=== PATIENT | female | born 1975 | race Caucasian/White ===

== ENCOUNTER → 2016-11-05 | Outpatient (CLI) | payer BC ==
--- NOTE | ~2016-11-05 | ECH ---
Transthoracic Echocardiography Report (TTE) Demographics Patient Name MADELYN SAAVEDRA Date of Study 11/05/2016 Patient Number [id number] Visit Number [id number] Date of 1975 Room Number Accession Number [id number] Gender Female Age 40 year(s) Referring Joselyn Morales MD Framing Inspector Vilma Mora Physician RDCS Physician Interpreting Marlys BORRERO Master Fisher Physician [place] Supervising Ordering Physician Joselyn Morales MD, MD/MLP Nurse Stress [employer] Farm Manager Conclusions Contractility Score Summary Normal Left Ventricular contractility was noted. Summary Technically good exam. The estimated left ventricular ejection fraction is 60%. No significant valvular abnormalities. Recommendation The patient will be given the results of this study by the physician who ordered the exam. Procedure Type of Study TTE procedure:Echo Complete SF. Procedure Date Date: 11/05/2016 Start: 12:48 PM Technical Quality: Good visualization Indications:Bilateral lower extremity edema. Appropriate Use Criteria: 9 Height: 62 inches Weight: 175 pounds BSA: 1.81 m Rhythm: NSR HR: 72 bpm BP: 108/56 mmHg M-Mode/2D Measurements LV Diastolic Dimension: 5.17 cm LV Systolic Dimension: 4.06 cm LV Septum Diastolic: 0.79 cm LV PW Diastolic: 0.75 cm AO Root Dimension: 3.18 cm Cardiac Output: 5.24 l/min LA Dimension: 3.5 cm Cardiac Index: 2.9 l/min*m RV Diastolic Dimension: 3.6 cm LA volume index: 20 ml/m LVOT: 1.89 cm LVOT VTI: 25.95 cm RV Base: 2.8 cm LV Stroke volume: 72.77 ml RV Mid: 2.2 cm LV Stroke volume index: 40.2 ml/m TAPSE: 2.7 cm TDI-S': 13 cm/s Doppler Measurements AV Peak Velocity: 1.4 m/s MV Peak E-Wave: 0.85 m/s AV Peak Gradient: 7.84 mmHg MV Peak A-Wave: 0.5 m/s AV Mean Gradient: 4.47 mmHg MV E/A Ratio: 1.68 LVOT Peak Velocity: 1.35 m/s MV P1/2t: 57.3 msec AV Area (Continuity):2.48 cm MV Deceleration Time: 190.6 msec MV Area (PHT): 3.84 cm PV Peak Velocity: 0.99 m/s E' Septal Velocity: 0.1 m/s PV Peak Gradient: 3.92 mmHg E' Lateral Velocity: 0.13 m/s A' Septal Velocity: 0.08 m/s A' Lateral Velocity: 0.04 m/s RA Area: 13.7 cm Findings Left Ventricle Normal left ventricle size and function. Diastolic assessment reveals normal relaxation. Right Ventricle Normal right ventricle structure and function. Left Atrium Normal left atrial size. Right Atrium Normal right atrial size. Mitral Valve Normal mitral valve structure and function. Mild mitral regurgitation by color Doppler. Aortic Valve Normal aortic valve structure and function. Tricuspid Valve Normal tricuspid valve structure and function. Trivial tricuspid regurgitation by color Doppler. Insufficient jet to calculate pulmonary pressures. Pulmonic Valve Normal pulmonic valve structure and function. Trivial pulmonic valve regurgitation by color Doppler. Pericardial Effusion No evidence of pericardial effusion. Miscellaneous Visualized portions of the aortic root and ascending aorta appear normal in size. Pleural Effusion No evidence of pleural effusion. Contractility Score LV regional wall motion:(0-Non visualized 1-Normal 2-Hypokinesis 3-Akinesis 4-Dyskinesis 5-Aneurysm) Signature
== END | disposition home or self-care (01) ==
LOC: CARD 12:34
DX: R60.0 Localized edema (principal)